=== PATIENT | female | born 1980 | race Caucasian/White ===

== ENCOUNTER → 2023-06-04 09:54 | Outpatient (REF) | payer OTHER, SELFPAY ==
[2023-06-06 17:58] LABS: Varicella Zoster IgG (VZV) Positive
[2023-06-06 19:03] LABS: Quantiferon Mitogen minus NIL 8.07 IU/mL; Quantiferon NIL 0.03 IU/mL; Quantiferon TB Gold Plus Negative (Negative)
== END ==
LOC: OHS 09:54
PROVIDERS: ATTENDING PHYSICIAN Nurse Practitioner Family
DX: Z23 Encounter for immunization (principal)
CPT/HCPCS: 36415; 86480; 86787

== ENCOUNTER → 2023-10-12 07:04 | Outpatient (REF) | payer BC, SELFPAY ==
[2023-10-12 10:16] LABS: % Basophils 0.5 % (0-2); % Eosinophils 1.8 % (0-6); % Immature Granulocytes 0.2 % (0-0.5); % Lymphocytes 40.3 % (20.5-51.1); % Monocytes 6.5 % (1.7-9.3); % Neutrophils 50.7 % (42.2-75.2); Absolute Eosinophils 0.1 10^3/uL (0-0.7); Absolute Lymphocytes 2.4 10^3/uL (1.2-3.4); Absolute Monocytes 0.4 10^3/uL (0.1-0.6); Hematocrit 37.8 % (37.0-47.0); Hemoglobin 12.9 g/dL (12.0-16.0); Mean Corp Hgb Conc. 34.1 g/dL (33.0-37.0); Mean Corpuscular Volume 90.9 fL (81.0-99.0); Mean Platelet Volume 10.2 fL (7.4-10.4); Nucleated Red Blood Cells % 0 %; Platelet Count 309 10^3/uL (130-400); Red Blood Cell Count 4.16 10^6/uL (4.20-5.40); Red Cell Dist. Width 12.3 % (11.5-14.5)
[2023-10-12 10:27] LABS: ALT (SGPT) 21 U/L (0-35); AST (SGOT) 27 U/L (14-36); Albumin 4.2 g/dl (3.5-5.0); Alkaline Phosphatase 62 U/L (38-126); Blood Urea Nitrogen 18 mg/dl (7-17); Calcium 9.8 mg/dl (8.4-10.2); Carbon Dioxide 23 mmol/L (22-30); Chloride 106 mmol/L (98-107); Glucose 122 mg/dl (70-99); HDL Cholesterol 57 mg/dl; LDL Cholesterol, Calculated 129 mg/dl; Sodium 139 mmol/L (135-145); Total Bilirubin 0.5 mg/dl (0.2-1.3); Total Cholesterol 215 mg/dl (50-199); Total Protein 6.9 g/dl (6.3-8.2); Triglyceride 146 mg/dl (10-149); Very Low Density Lipoprotein 29 mg/dl (0-30); eGFR > 60.00
[2023-10-12 12:37] LABS: Glycohemoglobin (HgbA1c) 6.5 % (4.0-5.6)
== END ==
LOC: HWLAB 07:04
PROVIDERS: ATTENDING PHYSICIAN Nurse Practitioner Family
DX: R73.03 Prediabetes (principal); Z79.899 Other long term (current) drug therapy; Z00.00 Encounter for general adult medical examination without abnormal findings
CPT/HCPCS: 36415; 80053; 80061; 83036; 85025

== ENCOUNTER → 2023-10-19 07:57 | Outpatient (REF) | payer BC, SELFPAY ==
[2023-10-19 10:38] LABS: Free T4 1.04 ng/dl (0.78-2.19); Luteinizing Hormone 3.31 mIU/ml
[2023-10-19 10:52] LABS: TSH 2.24 uIU/ml (0.47-4.68)
== END ==
LOC: HWLAB 07:57
PROVIDERS: ATTENDING PHYSICIAN Nurse Practitioner Family
DX: E11.9 Type 2 diabetes mellitus without complications (principal); E78.2 Mixed hyperlipidemia; F41.9 Anxiety disorder, unspecified; N92.6 Irregular menstruation, unspecified
CPT/HCPCS: 36415; 83001; 83002; 84439; 84443

== ENCOUNTER → 2023-11-13 11:11 | Outpatient (REF) | payer BC, SELFPAY | LOC: HWRAD 11:11 | PROVIDERS: ATTENDING PHYSICIAN Nurse Practitioner Family | DX: N93.9 Abnormal uterine and vaginal bleeding, unspecified (principal) | CPT/HCPCS: 76830; 76856 ==

== ENCOUNTER → 2023-12-19 10:11 | Outpatient (REF) | payer BC, SELFPAY | LOC: CLAB 10:11 | PROVIDERS: ATTENDING PHYSICIAN Obstetrics & Gynecology Gynecology | DX: N39.9 Disorder of urinary system, unspecified (principal) | CPT/HCPCS: 88305 ==

== ENCOUNTER → 2024-01-03 07:44 | Outpatient (REF) | payer BC, SELFPAY ==
[2024-01-03 09:36] LABS: Hematocrit 37.1 % (37.0-47.0); Hemoglobin 12.6 g/dL (12.0-16.0); Mean Corpuscular Hgb 30.3 pg (27.0-31.0); Mean Corpuscular Volume 89.2 fL (81.0-99.0); Mean Platelet Volume 9.8 fL (7.4-10.4); Platelet Count 344 10^3/uL (130-400); Red Blood Cell Count 4.16 10^6/uL (4.20-5.40); White Blood Cell Count 5.8 10^3/uL (4.8-10.8)
== END ==
LOC: HWLAB 07:44
PROVIDERS: ATTENDING PHYSICIAN Obstetrics & Gynecology Gynecology; FAMILY PHYSICIAN Nurse Practitioner Family
DX: N92.4 Excessive bleeding in the premenopausal period (principal)
CPT/HCPCS: 36415; 85027

== ENCOUNTER → 2024-01-21 17:26 | Outpatient (REF) | payer BC, SELFPAY | LOC: MRI 3T 17:26 | PROVIDERS: ATTENDING PHYSICIAN Obstetrics & Gynecology Gynecology; FAMILY PHYSICIAN Nurse Practitioner Family | DX: N93.9 Abnormal uterine and vaginal bleeding, unspecified (principal); D21.9 Benign neoplasm of connective and other soft tissue, unspecified | CPT/HCPCS: 72197 ==

== ENCOUNTER → 2024-01-25 11:22 | Outpatient (REF) | payer BC, SELFPAY | LOC: RADI 11:22 | PROVIDERS: ATTENDING PHYSICIAN Obstetrics & Gynecology Gynecology; FAMILY PHYSICIAN Nurse Practitioner Family | DX: D25.9 Leiomyoma of uterus, unspecified (principal); N92.1 Excessive and frequent menstruation with irregular cycle ==

== ENCOUNTER 2024-02-18 10:54 | Day surgery (SDC) | payer BC, SELFPAY ==
[2024-02-15 09:10] VITALS: BMI 30.1
[2024-02-18] VITALS (8 sets, daily range): BP systolic 91–146; BP diastolic 54–84
[2024-02-18 07:22] LABS: Hematocrit 35.2 % (37.0-47.0); Hemoglobin 12.2 g/dL (12.0-16.0); Mean Corp Hgb Conc. 34.7 g/dL (33.0-37.0); Mean Corpuscular Hgb 29.9 pg (27.0-31.0); Mean Corpuscular Volume 86.3 fL (81.0-99.0); Mean Platelet Volume 9.8 fL (7.4-10.4); Platelet Count 284 10^3/uL (130-400); Red Blood Cell Count 4.08 10^6/uL (4.20-5.40); Red Cell Dist. Width 12.1 % (11.5-14.5); White Blood Cell Count 4.9 10^3/uL (4.8-10.8)
[2024-02-18 07:26] LABS: HCG, Urine Qualitative Screen Negative
[2024-02-18 07:33] LABS: INR 0.99; PT 12.9 Sec (11.4-14.6)
[2024-02-18 07:38] LABS: Blood Urea Nitrogen 14 mg/dl (7-17); Estimated Creatinine Clearance 113 ml/min
[2024-02-18] MEDS: ZOFRAN 8 MG PO (08:28)
[2024-02-18] MEDS: DECADRON 10 MG IV (08:30)
[2024-02-18] MEDS: NSS 1000 IV ×2 (08:31→20:34)
[2024-02-18] MEDS: VANCOCIN 300 ML IV (08:47)
[2024-02-18] MEDS: VANCOCIN 300 MG IV (08:47)
[2024-02-18] MEDS: BENADRYL 25 MG IV (08:49)
[2024-02-18] MEDS: DILAUDID 0.5 MG IV ×2 (11:24→13:45)
[2024-02-18] MEDS: TORADOL 10 MG IV ×2 (15:02→20:35)
--- NOTE | 2024-02-18 18:48 | W.PN.UPDATE ---
Update Note
Progress Note Update
Doing well post uterine artery embolization. Pain has sig decreased as compared to earlier today, controlled with rx. No nausea, had apple and water. Nava out, ambulated to bathroom without difficulty. Bandaid R CF arteriotomy site with small amt
old dried blood. R groin no ecchymoses or induration. Expect DC AM.
[2024-02-18] MEDS: ZOFRAN 4 MG IV (19:09)
[2024-02-19] MEDS: TORADOL 10 MG IV (02:54)
[2024-02-19 03:23] VITALS: BP 143/83
[2024-02-19] MEDS: NSS IV (05:55)
--- NOTE | 2024-02-19 07:24 | W.PN.GENERIC ---
Assessment / Plan
-
43 yo female with h/o DUB and uterine fibroids who underwent UFE yesterday. She is recovering well. She is tolerating POs and voiding spontaneously
Plan to D/C home today
I spent over 30 minutes in reviewing the procedure and results with the patient, reviewing previous medical records, laboratory studies and relevant imaging as well as discussing the expected recovery period and outcomes with the patient
Physician Progress Note
Subjective
This is a 43-year-old female with hg/o uterine fibroids and DUB. She underwent UFE yesterday. She is feelingwell this morning. She is tolerating POs. SHe is voiding spontaneously. She dscribed some mild hematuria but no urgency bañuelos frequency.
She denies fever, chills, nausea, vomiting, CP or SOB.
PMH: Hypertension and anxiety.
PSH: Patient denies tobacco use.
Social History: Patient denies tobacco use. She lives with her fiance
Allergies: Penicillin.
Current Medications: Alprazolam 1 mg prn, Lysteda, lisinopril 10 mg daily, [id number] mg daily, women's multivitamin daily, zinc, Zyrtec.
Objective
Vital Signs
Temp Pulse Resp BP Pulse Ox
98.5 F 89 16 143/83 97
02/19/24 03:23 02/19/24 03:23 02/19/24 03:23 02/19/24 03:23 02/19/24 03:23
Lab Results
02/18/24 07:01
02/18/24 07:00
Physical examination: This is a well-nourished well-developed 43-year-old female who is awake alert and oriented in no acute distress. Her color is good. Her skin is warm and dry. Her heart is regular. Her lungs are clear throughout. Her abdomen is
soft and nontender with bowel sounds. .No LE edema. Groin dressing is CDI. No hemtoma. Palpable pedal and inguinal pulses
[2024-02-19 07:41] VITALS: BP 131/75
[2024-02-19] MEDS: TORADOL IV (08:12)
== END 2024-02-19 09:51 | disposition home or self-care (01) ==
LOC: RADI 10:54
PROVIDERS: ATTENDING PHYSICIAN Radiology Vascular & Interventional Radiology; FAMILY PHYSICIAN Nurse Practitioner Family; REFERRING PHYSICIAN Obstetrics & Gynecology
DX: D25.9 Leiomyoma of uterus, unspecified (principal); N92.0 Excessive and frequent menstruation with regular cycle; D64.9 Anemia, unspecified; Z01.812 Encounter for preprocedural laboratory examination; Z01.818 Encounter for other preprocedural examination
CPT/HCPCS: 37243; 36247; 36415; 75736; 76937; 81025; 82565; 84520; 85027; 85610; 99152; 99153; C1769; C1887

== ENCOUNTER → 2024-08-01 07:17 | Outpatient (REF) | payer BC, SELFPAY ==
[2024-08-01 09:51] LABS: % Basophils 0.6 % (0-2); % Eosinophils 1.5 % (0-6); % Immature Granulocytes 0.3 % (0-0.5); % Monocytes 7.9 % (1.7-9.3); % Neutrophils 53.7 % (42.2-75.2); Absolute Eosinophils 0.1 10^3/uL (0-0.7); Absolute Lymphocytes 2.4 10^3/uL (1.2-3.4); Absolute Monocytes 0.5 10^3/uL (0.1-0.6); Absolute Neutrophils 3.5 10^3/uL (1.4-6.5); Hematocrit 38.7 % (37.0-47.0); Hemoglobin 13.3 g/dL (12.0-16.0); Mean Corp Hgb Conc. 34.4 g/dL (33.0-37.0); Mean Corpuscular Hgb 31.1 pg (27.0-31.0); Mean Corpuscular Volume 90.4 fL (81.0-99.0); Mean Platelet Volume 10.1 fL (7.4-10.4); Nucleated Red Blood Cells % 0 %; Platelet Count 302 10^3/uL (130-400); Red Blood Cell Count 4.28 10^6/uL (4.20-5.40); White Blood Cell Count 6.6 10^3/uL (4.8-10.8)
[2024-08-01 10:12] LABS: ALT (SGPT) 26 U/L (0-35); AST (SGOT) 30 U/L (14-36); Albumin 4.6 g/dl (3.5-5.0); Alkaline Phosphatase 79 U/L (38-126); Blood Urea Nitrogen 18 mg/dl (7-17); Carbon Dioxide 26 mmol/L (22-30); Chloride 106 mmol/L (98-107); Glucose 112 mg/dl (70-99); HDL Cholesterol 70 mg/dl; LDL Cholesterol, Calculated 145 mg/dl; Potassium 4.2 mmol/L (3.5-5.1); Sodium 142 mmol/L (135-145); Total Bilirubin 0.6 mg/dl (0.2-1.3); Total Cholesterol 240 mg/dl (50-199); Triglyceride 129 mg/dl (10-149); Very Low Density Lipoprotein 25 mg/dl (0-30); eGFR > 60.00
[2024-08-01 10:53] LABS: Glycohemoglobin (HgbA1c) 5.9 % (4.0-5.6)
== END ==
LOC: HWLAB 07:17
PROVIDERS: ATTENDING PHYSICIAN Nurse Practitioner Family
DX: E11.8 Type 2 diabetes mellitus with unspecified complications (principal)
CPT/HCPCS: 36415; 80053; 80061; 83036; 85025